=== PATIENT | male | born 1950 | race Caucasian/White ===

== ENCOUNTER 2017-05-16 23:56 | Emergency (ER) | payer OTHER ==
[~2017-05-16] VITALS: Ht 167.6 cm; Wt 65.8 kg
--- NOTE | 2017-05-17 00:12 | NUR ---
BBRA FROM HOME; BODY ACHES. PT AOX3 RR EVEN AND UNLABORED. NO SOB NOTED. NAD NOTED. NO NVD AT THIS TIME. PT GOWNED AND PLACED ON MONITOR WAITING FOR MD BAZAN. PT NOT DIAPHORETIC.
--- NOTE | 2017-05-17 00:13 | NUR ---
PER EMS PLACED IV ON RIGHT AC 18G, PER EMS GAVE 500CC NS. INTACT AND PATENT. NO S/S INFECTION OR INFILTRATION NOTED.
--- NOTE | 2017-05-17 00:35 | NUR ---
RADIOLOGY AT BEDSIDE FOR CXR
--- NOTE | 2017-05-17 00:43 | NUR ---
INFLUENZA SWAB COLLECTED. SENT TO LAB
--- NOTE | 2017-05-17 01:35 | NUR ---
DR. GUSMAN AT BEDSIDE SPEAKING TO PT
--- NOTE | 2017-05-17 01:59 | NUR ---
IV removed. Catheter intact and site benign. Pressure and 4x4 applied to site. No bleeding noted. Patient discharged to home in stable condition. Written and verbal after care instructions given. Patient verbalizes understanding of instruction. ambulatory with a steady gait, accompanied by
[2017-05-17 02:01] VITALS: BP 152/68
== END 2017-05-17 02:03 | disposition home or self-care (01) ==
LOC: ER 05-17
DX: J06.9 Acute upper respiratory infection, unspecified (principal); I10 Essential (primary) hypertension
CPT/HCPCS: 71010-TC; 87400; A4606; Z7610